=== PATIENT | male | born 1990 | race Caucasian/White ===

== ENCOUNTER 2022-07-08 16:09 | Inpatient (IN) | payer BC ==
[~2022-07-08] VITALS: Ht 172.7 cm; Wt 68.0 kg
[2022-07-08] MEDS ORDERED: ONDANSETRON HCL INJ 2MG/ML 2ML 2 MG/ML VIAL IV STA (16:20)
[2022-07-08] MEDS ORDERED: KETOROLAC TROMETHAMINE 30 MG/ML VIAL IV STA (16:20)
[2022-07-08] MEDS ORDERED: SODIUM CHLORIDE 0.9% 1000ML 1,000 ML IV ONE (16:30)
[2022-07-08] MEDS ORDERED: KETOROLAC TROMETHAMINE 30 MG/ML VIAL ONE (16:39)
[2022-07-08] MEDS ORDERED: ONDANSETRON HCL INJ 2MG/ML 2ML 2 MG/ML VIAL ONE (16:39)
[2022-07-08 16:47] LABS: BASOPHILS # (AUTO) 0.1 (0.0-0.1); BASOPHILS % 0.3 % (0.0-1.0); EOSINOPHILS # (AUTO) 0.2 (0.0-0.4); EOSINOPHILS % 0.9 % (0.0-6.0); HEMATOCRIT 45.2 % (38.2-49.6); HEMOGLOBIN 14.8 g/dL (14.0-18.0); LYMPHOCYTES % 4.4 % (18.0-39.1); MEAN CORPUSCULAR HEMOGLOBIN 31.2 pg (28-32); MEAN CORPUSCULAR HGB CONC 32.7 g/dL (31-35); MEAN CORPUSCULAR VOLUME 95.2 fL (81-99); MONOCYTES # (AUTO) 1.5 (0.2-0.8); MONOCYTES % 6.6 % (4.4-11.3); NEUTROPHILS # (AUTO) 19.6 (2.1-6.9); NEUTROPHILS % 87.2 % (38.7-80.0); PLATELET COUNT 325 x10e3/uL (140-360); RED BLOOD COUNT 4.75 x10e6/uL (4.3-5.7); RED CELL DISTRIBUTION WIDTH 11.9 % (11.7-14.4)
[2022-07-08] MEDS ORDERED: Morphine 4mg INJECTION 4 MG/ML INJ IV ONE ×3 (17:00→23:45)
[2022-07-08 17:08] LABS: ALANINE AMINOTRANSFERASE 55 IU/L (0-55); ALBUMIN 4.6 g/dL (3.5-5.0); ALKALINE PHOSPHATASE 65 IU/L (40-150); BILIRUBIN,DIRECT 0.2 mg/dL (0.0-0.5)
[2022-07-08 17:12] LABS: ANION GAP 20.6 mmol/L (8-16); CALCIUM 9.7 mg/dL (8.4-10.2); CREATININE, SERUM 0.95 mg/dL (0.72-1.25); POTASSIUM 3.6 mmol/L (3.5-5.1)
[2022-07-08 17:33] LABS: LIPASE 3307 U/L (8-78)
[2022-07-08] MEDS ORDERED: IOPAMIDOL 370 MG/ML 100 ML INFUS..BTL INJ ONE (17:37)
[2022-07-08] MEDS ORDERED: SODIUM CHLORIDE 0.9% 1000ML 1,000 ML IV SCH ×2 (17:45→18:45)
[2022-07-08] MEDS ORDERED: ONDANSETRON HCL INJ 2MG/ML 2ML 2 MG/ML VIAL IV PRN (18:45)
[2022-07-08] MEDS ORDERED: Morphine 4mg INJECTION 4 MG/ML INJ IV PRN (18:45)
[2022-07-08 19:15] LABS: CLARITY,URINE CLEAR (CLEAR); COLOR,URINE STRAW (YELLOW); KETONES,URINE TRACE (NEGATIVE); LEUKOCYTE ESTERASE ,URINE NEGATIVE (NEGATIVE); NITRITE,URINE NEGATIVE (NEGATIVE); PROTEIN,URINE DIPSTICK NEGATIVE (NEGATIVE); URINE UROBILINOGEN 0.2 mg/dL (0.2 - 1)
[2022-07-08 21:02] LABS: CHOL/HDL RATIO 4.6 (3.9-4.7)
[2022-07-08 21:11] VITALS: BP 123/84
[2022-07-08 21:12] VITALS: BP 123/84
[2022-07-08] MEDS ORDERED: MEROPENEM 1 GM in SODIUM CHLORIDE 0.9% 100 ML IV ONE (23:30)
[2022-07-08] MEDS: LACTATED RINGER'S 1,000 ML INJ SCH ×2 (23:39→23:43)
[2022-07-09] MEDS ORDERED: LACTATED RINGER'S 1,000 ML INJ ONE (00:15)
[2022-07-09] MEDS: HYDROMORPHONE 1MG/1ML INJ IV PRN ×5 (01:53→18:22)
[2022-07-09 02:02] VITALS: BP 145/85
[2022-07-09 05:37] LABS: BASOPHILS % 0.2 % (0.0-1.0); EOSINOPHILS # (AUTO) 0.1 (0.0-0.4); EOSINOPHILS % 0.7 % (0.0-6.0); HEMATOCRIT 42.6 % (38.2-49.6); HEMOGLOBIN 13.6 g/dL (14.0-18.0); LYMPHOCYTES # (AUTO) 0.7 (1.0-3.2); MEAN CORPUSCULAR HEMOGLOBIN 31.1 pg (28-32); MEAN CORPUSCULAR HGB CONC 31.9 g/dL (31-35); MEAN CORPUSCULAR VOLUME 97.5 fL (81-99); MONOCYTES % 6.1 % (4.4-11.3); NEUTROPHILS # (AUTO) 14.6 (2.1-6.9); NEUTROPHILS % 88.4 % (38.7-80.0); PLATELET COUNT 274 x10e3/uL (140-360); RED BLOOD COUNT 4.37 x10e6/uL (4.3-5.7); RED CELL DISTRIBUTION WIDTH 12.2 % (11.7-14.4)
[2022-07-09 05:52] LABS: ALBUMIN 3.5 g/dL (3.5-5.0); ALBUMIN/GLOBULIN RATIO 1.3 (0.8-2.0); ANION GAP 15.3 mmol/L (8-16); CALCIUM 8.5 mg/dL (8.4-10.2); CREATININE, SERUM 0.75 mg/dL (0.72-1.25); POTASSIUM 4.3 mmol/L (3.5-5.1)
[2022-07-09 08:00] VITALS: BP 142/99
[2022-07-09] MEDS: LACTATED RINGER'S 1,000 ML INJ SCH ×6 (09:27→20:39)
[2022-07-09 11:53] VITALS: BP 141/88
[2022-07-09 16:00] VITALS: BP 124/82
[2022-07-09 21:38] VITALS: BP 126/84
[2022-07-10] VITALS (8 sets, daily range): BP systolic 122–159; BP diastolic 76–86
[2022-07-10] MEDS: HYDROMORPHONE 1MG/1ML INJ IV PRN ×6 (02:57→21:26)
[2022-07-10 05:33] LABS: BASOPHILS % 0.2 % (0.0-1.0); EOSINOPHILS # (AUTO) 0.2 (0.0-0.4); EOSINOPHILS % 1.7 % (0.0-6.0); HEMATOCRIT 37.1 % (38.2-49.6); HEMOGLOBIN 11.7 g/dL (14.0-18.0); LYMPHOCYTES # (AUTO) 0.8 (1.0-3.2); LYMPHOCYTES % 6.6 % (18.0-39.1); MEAN CORPUSCULAR HEMOGLOBIN 31.4 pg (28-32); MEAN CORPUSCULAR HGB CONC 31.5 g/dL (31-35); MEAN CORPUSCULAR VOLUME 99.5 fL (81-99); MONOCYTES # (AUTO) 0.9 (0.2-0.8); MONOCYTES % 7.2 % (4.4-11.3); NEUTROPHILS % 83.7 % (38.7-80.0); PLATELET COUNT 231 x10e3/uL (140-360); RED BLOOD COUNT 3.73 x10e6/uL (4.3-5.7); RED CELL DISTRIBUTION WIDTH 12.3 % (11.7-14.4)
[2022-07-10 06:14] LABS: ALBUMIN 2.9 g/dL (3.5-5.0); ANION GAP 15.6 mmol/L (8-16); CALCIUM 8.2 mg/dL (8.4-10.2); CREATININE, SERUM 0.7 mg/dL (0.72-1.25); POTASSIUM 3.6 mmol/L (3.5-5.1)
[2022-07-10] MEDS ORDERED: ONDANSETRON HCL 4 MG ORAL DISINTEGRATING TAB SL PRN (07:15)
[2022-07-10] MEDS: LACTATED RINGER'S 1,000 ML INJ SCH ×5 (07:16→21:26)
[2022-07-10 21:16] LABS: % IRON SATURATION 8 % (15-50); IRON 19 ug/dL (65-175); TOTAL IRON BINDING CAPACITY 239 ug/dL (261-478); TRANSFERRIN 171 mg/dL (174-364)
[2022-07-11] VITALS (7 sets, daily range): BP systolic 113–144; BP diastolic 70–92
[2022-07-11] MEDS: HYDROMORPHONE 1MG/1ML INJ IV PRN ×4 (01:43→15:03)
[2022-07-11] MEDS: LACTATED RINGER'S 1,000 ML INJ SCH ×6 (04:24→23:30)
[2022-07-11 05:27] LABS: ALBUMIN 2.7 g/dL (3.5-5.0); ALBUMIN/GLOBULIN RATIO 0.8 (0.8-2.0); CALCIUM 8.5 mg/dL (8.4-10.2); CREATININE, SERUM 0.67 mg/dL (0.72-1.25)
[2022-07-11] MEDS ORDERED: HYDROCODONE/APAP 5MG-325MG TAB PO PRN (15:15)
[2022-07-11] MEDS ORDERED: CYANOCOBALAMIN INJ 1,000 MCG/ML VIAL IM ONE (23:15)
[2022-07-11] MEDS ORDERED: FOLIC ACID 1 MG TAB PO ONE (23:15)
[2022-07-12] MEDS: LACTATED RINGER'S 1,000 ML INJ SCH ×5 (03:30→15:30)
[2022-07-12 04:00] VITALS: BP 125/90
[2022-07-12 08:21] VITALS: BP 123/82
[2022-07-12] MEDS ORDERED: CYANOCOBALAMIN INJ 1,000 MCG/ML VIAL IM SCH ×2 (09:00→21:00)
[2022-07-12] MEDS ORDERED: FOLIC ACID 1 MG TAB PO SCH (09:00)
[2022-07-12] MEDS ORDERED: IRON SUCROSE 100 MG in SODIUM CHLORIDE 0.9% 100 ML IV SCH (09:00)
[2022-07-12 11:40] VITALS: BP 123/82
[2022-07-12 12:42] VITALS: BP 123/83
[2022-07-12] MEDS: HYDROMORPHONE 1MG/1ML INJ IV PRN (13:32)
[2022-07-12 17:04] VITALS: BP 125/82
== END 2022-07-12 18:46 | disposition home or self-care (01) | DRG 440 ==
LOC: ER 16:15 → ERHOLD 18:48 → MED/SURG 20:26
PROVIDERS: ADMIT Family Medicine; ATTEND Family Medicine
DX: K85.90 Acute pancreatitis without necrosis or infection, unspecified (principal); K21.9 Gastro-esophageal reflux disease without esophagitis; D50.9 Iron deficiency anemia, unspecified; K21.00 Gastro-esophageal reflux disease with esophagitis, without bleeding; Z20.822 Contact with and (suspected) exposure to COVID-19
CPT/HCPCS: 36415; 74177; 80048; 80053; 80061; 80076; 81001; 82607; 82746; 83540; 83690; 83970; 84466; 84484; 85025; 85045; 86039; 86301; 93005; 93971; 94799; 96361; 99252; 99284; J1170; J1756; J1885; J2185; J2270; J2405; J3420; J7030; J7050; J7121; Q0162; Q9967

== ENCOUNTER → 2022-07-29 | Day surgery (SDC) | payer BC ==
[~2022-07-29] MED LIST: AIRBORNE CHEWA1 EACH PO; GLUCAGON FOR INJ 1 MG VIAL ONE; LIDOCAINE HCL 2% LOCAL INJ 5 ML SDV VIAL INJ ONE; METOCLOPRAMIDE HCL 10 MG/2ML VIAL ONE; MIDAZOLAM HCL 2 MG/2 ML VIAL ONE; PROPOFOL IV EMULSION 10 MG/ML 20 ML VIAL ONE
[2022-07-29 14:40] VITALS: BP 122/95
== END | disposition home or self-care (01) ==
LOC: OR 11:28
PROVIDERS: ATTEND Internal Medicine Gastroenterology
DX: Z12.11 Encounter for screening for malignant neoplasm of colon (principal); K63.5 Polyp of colon; K29.70 Gastritis, unspecified, without bleeding; K22.10 Ulcer of esophagus without bleeding; K21.00 Gastro-esophageal reflux disease with esophagitis, without bleeding; K62.89 Other specified diseases of anus and rectum; K52.9 Noninfective gastroenteritis and colitis, unspecified; K44.9 Diaphragmatic hernia without obstruction or gangrene; K64.8 Other hemorrhoids; K85.91 Acute pancreatitis with uninfected necrosis, unspecified; Z71.3 Dietary counseling and surveillance; D50.9 Iron deficiency anemia, unspecified; J45.909 Unspecified asthma, uncomplicated; R07.9 Chest pain, unspecified; R03.0 Elevated blood-pressure reading, without diagnosis of hypertension; Z71.89 Other specified counseling; Z88.0 Allergy status to penicillin; Z86.16 Personal history of COVID-19; Z87.891 Personal history of nicotine dependence; Z80.0 Family history of malignant neoplasm of digestive organs
CPT/HCPCS: 43239; 45380; C9113; J1610; J2001; J2250; J2704; J2765; 45378